=== PATIENT | male | born 1995 | race Caucasian/White ===

== ENCOUNTER 2022-04-07 13:00 | Inpatient (IN) | payer MEDICAID ==
[~2022-04-07] VITALS: Ht 185.4 cm; Wt 153.3 kg
[2022-04-07 14:14] LABS: BASOPHILS # (AUTO) 0.1 X10'3 (0-0.2); BASOPHILS % (AUTO) 0.5 % (0-1); EOSINOPHILS # (AUTO) 0.2 X10'3 (0-0.9); EOSINOPHILS % (AUTO) 1.8 % (0-6); HEMATOCRIT 41.5 % (42.0-52.0); HEMOGLOBIN 14.1 g/dl (14.0-17.9); LYMPHOCYTES # (AUTO) 2.2 X10'3 (1.1-4.8); LYMPHOCYTES % (AUTO) 17.6 % (21-51); MEAN CORPUSCULAR VOLUME 82.4 FL (78-98); MEAN PLATELET VOLUME 6.7 FL (7.4-10.4); MONOCYTES % (AUTO) 8.4 % (2-12); NEUTROPHILS # (AUTO) 8.9 X10'3 (1.8-7.7); NEUTROPHILS % (AUTO) 71.7 % (42-75); PLATELET COUNT 290 X10'3 (140-440); RED BLOOD COUNT 5.04 X10'6 (4.70-6.10); RED CELL DISTRIBUTION WIDTH 13.2 % (11.5-14.5); WHITE BLOOD COUNT 12.5 X10'3 (4.5-11.0)
--- NOTE | 2022-04-07 14:25 | NUR ---
Pt. ambulated over from the main ER accompanied by security. Pt. is in the bathroom at this time giving ordered UA.
[2022-04-07 14:26] LABS: ALANINE AMINOTRANSFERASE 46 U/L (12-78); ALBUMIN 3.6 G/DL (3.4-5.0); ALBUMIN/GLOBULIN RATIO 0.7 (1.1-1.5); ALKALINE PHOSPHATASE 134 IU/L (46-116); ANION GAP 10 (8-16); ASPARTATE AMINO TRANSFERASE 21 U/L (10-37); BILIRUBIN,TOTAL 0.5 MG/DL (0.1-1.0); BLOOD UREA NITROGEN 12 MG/DL (7-18); BUN/CREATININE RATIO 13.6 (5.4-32.0); CALCIUM 9.3 MG/DL (8.5-10.1); CHLORIDE 103 MMOL/L (99-107); CREATININE 0.88 MG/DL (0.60-1.10); ETHANOL < 0.010 GM/DL (0.0-0.010); GLUCOSE 103 MG/DL (70-104); POTASSIUM 3.8 MMOL/L (3.5-5.1); SODIUM 138 MMOL/L (135-145); TOTAL CARBON DIOXIDE 25.1 MMOL/L (24-32); TOTAL PROTEIN 8.5 G/DL (6.4-8.2); eGFR > 90 ML/MIN
--- NOTE | 2022-04-07 15:00 | NUR ---
Pt. was cooperative with mental health assessment completed at bedside. He reports a mental health history of PTSD, depression, anxiety, and schizophrenia. Pt. also reports S/I with a plan to walk in front of a car. He had a previous suicide attempt eight months ago durig which he attempted to cut his wrist with a knife, but a friend stopped him. Pt. is also reporting command A/SANTILLAN and V/SANTILLAN of "Shadow people." He reports paranoid delusional thoughts that others may want to hurt him.
[2022-04-07 15:34] LABS: URINE AMPHETAMINE SCREEN NEGATIVE (Neg); URINE BARBITUATE SCREEN NEGATIVE (Neg); URINE BENZODIAZEPINES SCREEN NEGATIVE (Neg); URINE CANNABINOID SCREEN NEGATIVE (Neg); URINE COCAINE SCREEN NEGATIVE (Neg); URINE METHADONE SCREEN NEGATIVE (Neg); URINE OPIATE SCREEN NEGATIVE (Neg); URINE PHENCYCLIDINE SCREEN NEGATIVE (Neg)
--- NOTE | 2022-04-07 15:52 | NUR ---
This machine sign writer called pt's pharmacy, [facility] on [address] to verify his medications since he was unable to remember what medications he currently takes. Pt. reports he last took his medications X4 days ago. Will complete Med Recc
[2022-04-07 16:09] LABS: CLARITY,URINE CLEAR (Clear); COLOR,URINE YELLOW (Yellow); GLUCOSE, URINE NEGATIVE (Neg); KETONES,URINE NEGATIVE (Neg); LEUKOCYTE ESTERASE ,URINE NEGATIVE (Neg); NITRITES, URINE NEGATIVE (Neg); OCCULT BLOOD,URINE NEGATIVE (Neg); PH,URINE 5.5 (4.8-8.0); PROTEIN,URINE NEGATIVE (Neg); UROBILINOGEN,URINE 0.2 E.U/dL (0.2-1.0)
[2022-04-07 16:10] LABS: UA COLLECTION TYPE VOIDED
--- NOTE | 2022-04-07 16:18 | NUR ---
TIFFANY SENT PT PACKET TO [facility] AT 16:18
[2022-04-07] MEDS ORDERED: BENZ1TAB7 PO (16:28)
[2022-04-07] MEDS ORDERED: OLAN20TA3 PO (16:28)
[2022-04-07] MEDS ORDERED: ARIP5TAB14 PO (16:28)
[2022-04-07] MEDS ORDERED: TRAZ-256 PO (16:28)
[2022-04-07] MEDS ORDERED: HYDR-3686 PO (16:28)
--- NOTE | 2022-04-07 16:32 | NUR ---
Pt. is sleeping at this time, laying on his right side with HOB elevated. RR are even and unlabored.
--- NOTE | 2022-04-07 16:51 | NUR ---
Pt. has a reddened rash which he reports is chronic eczema on his face, back, and bilateral arms and legs. This was endorsed to SHEILA Naranjo who gave orders for Triamcinolone Cream 0.1% daily as needed.
[2022-04-07] MEDS ORDERED: hydrOXYzine 25 MG tablet PO PRN (17:55)
--- NOTE | 2022-04-07 17:59 | NUR ---
Pt. is sitting up in bed at this time awaiting dinner.
[2022-04-07] MEDS: triamcinolone acet 0.1% cream 15gm TP PRN (18:42)
--- NOTE | 2022-04-07 19:17 | NUR ---
One to one with the patient to discuss plan of care and assess for self harm risk and severity of thought disorder. The patient was cooperative with the assessment. He reports continued auditory hallucinations telling him to harm himself and visual hallucinations of "shadow person" in his peripheral vision. Reports continued suicidal thoughts. and high anxiety. He was given atarax prn for anxiety.
[2022-04-07] MEDS: traZODone 50mg tablet PO SCH (20:04)
[2022-04-07] MEDS: olanzapine 10mg tablet PO SCH (20:04)
[2022-04-07] MEDS: benztropine 1mg tablet PO SCH (20:04)
--- NOTE | 2022-04-07 20:45 | NUR ---
The patient appears to be sleeping
--- NOTE | 2022-04-07 22:07 | NUR ---
The patient appears to be sleeping
--- NOTE | 2022-04-08 00:22 | NUR ---
The patient appears to be sleeping
--- NOTE | 2022-04-08 01:28 | NUR ---
The patient appears to be sleeping
--- NOTE | 2022-04-08 03:18 | NUR ---
The patient appears to be sleeping
--- NOTE | 2022-04-08 05:08 | NUR ---
The patient appears to be sleeping
--- NOTE | 2022-04-08 06:25 | NUR ---
The patient up to use the bathroom but is now back in bed
[2022-04-08] MEDS: aripiprazole 5mg tablet PO SCH (08:03)
--- NOTE | 2022-04-08 08:07 | NUR ---
The patient is sitting up ad eating his breakfast. Appears depressed. He does not appear to be responding to internal stimuli.
--- NOTE | 2022-04-08 09:33 | NUR ---
The patient has been accepted at [facility]
--- NOTE | 2022-04-08 10:27 | NUR ---
The patient is resting on her bed and he was made aware that he would be transferring up to [facility] soon
--- NOTE | 2022-04-08 11:55 | NUR ---
The patient is watching cartoons and waiting to be transferred upstairs.
--- NOTE | 2022-04-08 12:15 | NUR ---
Admission Note: Pt. was transferred from the ER at 1215 in a w/c accompanied by [employer]. His belongings were inventoried and a safety check was preformed by Tech. Pt. is on a 5150 for DTS. Per 5150: Pt. reports thoughts to jump out in front of oncoming traffic and is unable to safety plan. Pt. was compliant with the admission assessment and also reports command A/SANTILLAN and V/SANTILLAN of "A shadow person." He has a history of pervious suicide attempts including cutting, alcohol poisoning, and overdose. Pt. reports a psychiatric history of PTSD, depression, anxiety, and schizophrenia. He had been out of his medications X4 days before coming to the hospital. Addendum: 04/08/22 at 1522 by Paradise Celaya RN Pt. scores as a high risk on the [place] Suicide Risk Assessment, however is able to contract for safety while on the unit. This was endorsed to SHEILA Pugh who ordered Q 15min safety checks.
[2022-04-08 12:57] VITALS: BP 129/72
[2022-04-08] MEDS ORDERED: NICOTINE POLACRILEX 2 MG LOZENGE BC PRN (14:05)
[2022-04-08 19:59] VITALS: BP 134/82
[2022-04-08] MEDS: benztropine 1mg tablet PO SCH (20:33)
[2022-04-08] MEDS: traZODone 50mg tablet PO SCH (20:33)
[2022-04-08] MEDS: olanzapine 10mg tablet PO SCH (20:33)
--- NOTE | 2022-04-09 05:07 | NUR ---
Nursing Progress Note: Problem: Pt. was transferred from the ER; he is on a 5150 for DTS. Per 5150: Pt. reports thoughts to jump out in front of oncoming traffic and is unable to safety plan. Pt. reports command A/SANTILLAN and V/SANTILLAN of "A shadow person." He has a history of pervious suicide attempts including cutting, alcohol poisoning, and overdose. Pt. reports a psychiatric history of PTSD, depression, anxiety, and schizophrenia. He had been out of his medications X4 days before coming to the hospital. Intervention: Medication given as ordered. Provided with a safe and therapeutic environment, clear communication, active listening and positive encouragement. Response: Patient is pleasant and cooperative with care; compliant with medication. He continues to reports VH of a shadow man. Patient endorses SI and states he has been struggling with PTSD and depression "for a very long time." Patient remained in his room throughout this shift but making needs known. He was provided HS snack and observed sleeping with no apparent difficulties. Plan: Patient requires crisis interruption and stabilization with medication management and monitoring in a safe and therapeutic environment.
[2022-04-09 08:00] VITALS: BP 130/78
[2022-04-09] MEDS: nicotine 7mg patch - 24hr TD SCH (08:00)
[2022-04-09] MEDS: aripiprazole 5mg tablet PO SCH (08:08)
--- NOTE | 2022-04-09 09:32 | NUR ---
Head Of Geography met w/pt and engaged him in completing a psychosocial assessment. Per session, pt reports long history PTSD, depression & anxiety. Pt reports that he had traveled from [place] to [place] to visit his sister in [place]. However when he got there, sister refused to let him stay with her. Pt then traveled to [place] to stay w/GF, he discovered that GF had cheated on him and rtd to [place]. Pt requesting support to rt to [place] where he has family, and know people who will employ him, is familiar with community resources to assist him w/permanent housing, and wants to resume his MH services w/provider in [place]. Pt reports frequent SI but currently has no plans to hurt himself. Endorses flashbacks & nightmares. Plan: Clinician will consult w/attending [place] to determine appropriate dcp for pt. Lidia Ferreira LCSW Addendum: 04/10/22 at 0948 by Lidia Ferreira SS Amended: Links added.
--- NOTE | 2022-04-09 17:18 | NUR ---
Nursing Progress Note: Problem: Pt. was transferred from the ER; he is on a 5150 for DTS. Per 5150: Pt. reports thoughts to jump out in front of oncoming traffic and is unable to safety plan. Pt. reports command A/SANTILLAN and V/SANTILLAN of "A shadow person." He has a history of pervious suicide attempts including cutting, alcohol poisoning, and overdose. Pt. reports a psychiatric history of PTSD, depression, anxiety, and schizophrenia. He had been out of his medications X4 days before coming to the hospital. Problems today: 1.A/V hallucinations. Pt. reports hearing voices that call him names as well as see shadows in his peripheral vision. 2.HI towards family members, pt. does not want to discuss this. Intervention: Medication given as ordered. Maintained a safe and supportive environment, administered scheduled and PRN medications. Provided clear and simple instructions, encouraged going to group, provided active listening and positive encouragement, encouraged participation on the unit, provided redirection and clear boundaries. Response: Patient is pleasant and cooperative with care; compliant with medication. He continues to reports A/V hallucinations. Pt. denies SI, states, Not right now. But reports HI towards family members. Pt. observed coloring in his room and talking on phone while pacing hallway. Plan: Patient requires crisis interruption and stabilization with medication management and monitoring in a safe and therapeutic environment.
[2022-04-09 19:16] VITALS: BP 133/55
[2022-04-09] MEDS: olanzapine 10mg tablet PO SCH (20:06)
[2022-04-09] MEDS: traZODone 50mg tablet PO SCH (20:07)
[2022-04-09] MEDS: benztropine 1mg tablet PO SCH (20:07)
[2022-04-09] MEDS ORDERED: mag hydrox/Alum hydrox/simeth 30ml oral suspension PO PRN (23:00)
[2022-04-09] MEDS ORDERED: loperamide 2mg capsule PO PRN (23:00)
[2022-04-09] MEDS ORDERED: magnesium hydroxide 30ml (MOM) UD suspension PO PRN (23:00)
[2022-04-09] MEDS ORDERED: acetaminophen 325mg tablet PO PRN ×2 (23:00)
--- NOTE | 2022-04-10 05:04 | NUR ---
Nursing Progress Note: Problem: Pt. was transferred from the ER; he is on a 5150 for DTS. Per 5150: Pt. reports thoughts to jump out in front of oncoming traffic and is unable to safety plan. Pt. reports command A/SANTILLAN and V/SANTILLAN of "A shadow person." He has a history of pervious suicide attempts including cutting, alcohol poisoning, and overdose. Pt. reports a psychiatric history of PTSD, depression, anxiety, and schizophrenia. He had been out of his medications X4 days before coming to the hospital. Intervention: Medication given as ordered. Provided with a safe and therapeutic environment, clear communication, active listening and positive encouragement. Response: Patient is pleasant and cooperative with care; compliant with medication. Nicotine patch removed. He continues to report VH of a shadow man and negative AH. He denies SI this shift. Patient is social with peers and observed singing along with a game show. Patient participated in HS snack prior to bed; observed sleeping and does not appear to be having difficulty. Plan: Patient requires crisis interruption and stabilization with medication management and monitoring in a safe and therapeutic environment.
[2022-04-10 07:30] VITALS: BP 152/65
[2022-04-10 08:20] LABS: CHOL/HDL RATIO 5.4 (0.00-4.99); CHOLESTEROL 204 MG/DL (0-200); HDL CHOLESTEROL 38 MG/DL (35-60); LDL CHOLESTEROL 141 MG/DL (50-100); TRIGLYCERIDES 69 MG/DL (20-135)
[2022-04-10] MEDS: nicotine 7mg patch - 24hr TD SCH (08:27)
[2022-04-10 08:49] LABS: HEMOGLOBIN A1C 5.5 % (4.5-6.2)
[2022-04-10] MEDS ORDERED: BENZ1TAB7 PO (11:26)
[2022-04-10] MEDS ORDERED: OLAN20TA3 PO (11:26)
[2022-04-10] MEDS ORDERED: NICO-630 TD (11:26)
[2022-04-10] MEDS ORDERED: NICO-907 BC (11:26)
[2022-04-10] MEDS ORDERED: KEN0.1O TP (11:26)
[2022-04-10] MEDS ORDERED: HYDR-3686 PO (11:26)
[2022-04-10] MEDS ORDERED: TRAZ-256 PO (11:26)
[2022-04-10] MEDS ORDERED: PRAZ1CAP5 PO (11:53)
--- NOTE | 2022-04-10 13:33 | NUR ---
CM-DCP Presenting Issues: Pt's to d/c tomorrow at 2:00AM to catch [employer] train to [place]. Pt needs transportation to the [employer] station. Interventions: Clinician had t/c w/[employer] [phone] and scheduled a 2:00AM cloth picker for pt for tomorrow. Plan: Pt to d/c @ 2:00AM tomorrow. Lidia Ferreira LCSW Addendum: 04/10/22 at 1336 by Lidia Ferreira SS Amended: Links added.
--- NOTE | 2022-04-10 17:36 | NUR ---
Nursing Progress Note: Problem: Pt. was transferred from the ER; he is on a 5150 for DTS. Per 5150: Pt. reports thoughts to jump out in front of oncoming traffic and is unable to safety plan. Pt. reports command A/SANTILLAN and V/SANTILLAN of "A shadow person." He has a history of pervious suicide attempts including cutting, alcohol poisoning, and overdose. Pt. reports a psychiatric history of PTSD, depression, anxiety, and schizophrenia. He had been out of his medications X4 days before coming to the hospital. Intervention: Medication given as ordered. Maintained a safe and supportive environment, administered scheduled and PRN medications. Provided clear and simple instructions, encouraged going to group, provided active listening and positive encouragement, encouraged participation on the unit, provided redirection and clear boundaries. Response: Patient is pleasant and cooperative with care; compliant with medication. Pt. denies all psych symptoms. Pt. observed coloring in the community room and socializing with fellow peers in the AM. Pt. napped in the afternoon. Pt. showered. Plan: Patient requires crisis interruption and stabilization with medication management and monitoring in a safe and therapeutic environment. Pt's to d/c tomorrow 04/11 at 2:00AM to catch [employer] train to [place]. Per opinion polls survey worker, had t/c w/[employer] [phone] and scheduled a 2:00AM hand picker for pt for tomorrow.
[2022-04-10 19:09] VITALS: BP 128/74
[2022-04-10] MEDS: traZODone 50mg tablet PO SCH (20:01)
[2022-04-10] MEDS: olanzapine 10mg tablet PO SCH (20:01)
[2022-04-10] MEDS: benztropine 1mg tablet PO SCH (20:01)
[2022-04-10] MEDS ORDERED: prazosin 1mg capsule PO SCH (21:00)
[2022-04-10] MEDS: triamcinolone acet 0.1% cream 15gm TP PRN (23:09)
--- NOTE | 2022-04-11 01:58 | NUR ---
DISCHARGE NOTE: Patient belongs returned and discharge instructions provided. Commercial Account Executive provided emphasis that he needs to schedule follow up appointments with his provider; patient reported understanding. Patient was provided with bus ticket and medications. He appears stable and assisted to cab by PCT.
== END 2022-04-11 02:02 | disposition home or self-care (01) | DRG 753 ==
LOC: ER 13:01 → ED HOLD 04-08 09:26 → ADULT MH 04-08 12:44
PROVIDERS: ADMIT Psychiatry & Neurology Psychiatry; ATTEND Psychiatry & Neurology Psychiatry
DX: F31.9 Bipolar disorder, unspecified (principal); R45.851 Suicidal ideations; F20.9 Schizophrenia, unspecified; R63.0 Anorexia; Z20.822 Contact with and (suspected) exposure to COVID-19; F12.90 Cannabis use, unspecified, uncomplicated; E66.9 Obesity, unspecified; R06.83 Snoring; F43.12 Post-traumatic stress disorder, chronic; F41.0 Panic disorder [episodic paroxysmal anxiety]; F17.210 Nicotine dependence, cigarettes, uncomplicated; Z80.8 Family history of malignant neoplasm of other organs or systems; Z59.00 Homelessness unspecified; Z91.51 Personal history of suicidal behavior; Z56.0 Unemployment, unspecified; Z68.41 Body mass index [BMI] 40.0-44.9, adult; Z88.8 Allergy status to other drugs, medicaments and biological substances; Z81.8 Family history of other mental and behavioral disorders; Z71.6 Tobacco abuse counseling; Z79.899 Other long term (current) drug therapy
CPT/HCPCS: 36415; 80053; 80061; 80305; 80320; 81003; 83036; 85025; 87081; 99285; Q0177